=== PATIENT | female | born 1940 | race Caucasian/White ===

== ENCOUNTER → 2017-02-17 | Day surgery (SDC) | payer MEDICARE ==
[~2017-02-17] MED LIST: BUPIVACAINE HCL PF 0.5% 30 ML VIAL ONE; CLINDAMYCIN PHOS 900 MG/6 ML VIAL ONE; KETOROLAC TROMETHAMINE 30 MG/ML (IVP) VIAL IV PUSH ONE; LACTATED RINGER'S 1000 ML INJ 1,000 ML ONE; MIDAZOLAM HCL 2 MG/2 ML VIAL ONE; ONDANSETRON HCL 4 MG/2 ML VIAL IV PUSH ONE; PROPOFOL 200 MG/20 ML AMP IV ONE; SODIUM CHLORIDE 0.9% INJ 100 ML IV ONE
--- NOTE | 2017-02-17 12:47 | TN ---
cc: JOSLYN BARNES DATE OF SURGERY 02/17/2017 DATE OF SURGERY 02/17/2017 PRINCIPAL DIAGNOSIS Left breast cancer with recurrent left breast seroma. POSTOPERATIVE DIAGNOSIS Left breast cancer with recurrent left breast seroma. PROCEDURE PERFORMED Removal of right subclavian [id number] and oncoplastic revision of left breast lumpectomy cavity. SURGEON Joslyn Barnes. <D ANESTHESIA General via LMA device. INDICATION The patient is a 76-year-old female with a history of left breast cancer treated with a large upper medial lumpectomy and oncoplastic reconstruction, as well as sentinel lymph node biopsy last year. She subsequently completed adjuvant chemotherapy as well as whole breast radiation and developed a recurrent upper medial seroma at the site of her lumpectomy cavity earlier this year. It has not responded well to aspiration and she now presents for revision of the cavity. FINDINGS AT THE TIME OF SURGERY The lumpectomy cavity and a noninfected seroma were easily identified. There was minimal residual tissue in the upper medial breast despite her previous oncoplastic reconstruction. PROCEDURE PERFORMED After informed consent was obtained and site verification was performed, the patient was brought to the major operating room where she underwent general anesthesia via an LMA device. She was given a single dose of IV clindamycin due to penicillin allergy and sequential compression hose were placed. The right chest and left breast were then prepped and draped in sterile fashion. The right infraclavicular port incision was anesthetized with 0.5% Marcaine plain and incised sharply. Sharp dissection was then performed circumferentially around the port reservoir until it had been easily mobilized through the wound and the catheter was then withdrawn without difficulty and no resistance. The total catheter length was 15 cm and it was intact. Hemostasis was easily obtained with direct pressure at the subclavian site with good hemostasis noted. The wound was then closed using interrupted 3-0 Vicryl subcutaneous sutures and a 4-0 Monocryl subcuticular suture. Steri-Strips and sterile dressing were applied. Attention was then turned to the left breast where the previous periareolar incision in the upper medial breast was anesthetized with 0.5% Marcaine plain. The periareolar incision was sharply reopened until the lumpectomy cavity and seroma were identified. The seroma was then evacuated and the cavity was inspected. There was minimal residual breast tissue in the upper medial breast. The lateral breast tissue was mobilized at the level of the anterior breast fascia away from the subcutaneous fat as well as off the pectoralis fascia. A 3 cm area of lateral breast tissue was then moved to the medial side where it was secured to the chest wall with interrupted 3-0 Vicryl sutures. A drain was placed in the subcutaneous tissues through a separate stab wound and it was secured to the skin with a 3-0 nylon suture. Hemostasis was easily obtained with electrocautery and the wound was closed using interrupted 3-0 Vicryl subcutaneous sutures and a 4-0 Monocryl subcuticular suture. Steri-Strips and sterile dressing were applied. The patient tolerated the procedure well with minimal blood loss and she was extubated in the operating room and brought to recovery room in good condition. All sponge and needle counts were correct at the conclusion of the case. MD JEFFERSON Young/CHA /12:15 PM /12:30 PM
== END | disposition home or self-care (01) ==
LOC: ESDC 08:31
PROVIDERS: ATTEND Surgery
DX: Z45.2 Encounter for adjustment and management of vascular access device (principal); C50.912 Malignant neoplasm of unspecified site of left female breast; L76.34 Postprocedural seroma of skin and subcutaneous tissue following other procedure
CPT/HCPCS: 00400; 10140; 36590; J1885; J2250; J2405; J3010; J7120